=== PATIENT | female | born 1985 | race Caucasian/White ===

== ENCOUNTER 2018-01-18 10:47 | Emergency (ER) | payer MEDICAID, OTHER ==
[~2018-01-18] VITALS: Ht 160 cm; Wt 68.0 kg
[2018-01-18] MEDS ORDERED: ACETAMINOPHEN 500 MG TABLET PO ONE (11:00)
[2018-01-18] MEDS ORDERED: ACETAMINOPHEN 500 MG TABLET ONE (11:06)
[2018-01-18] MEDS ORDERED: PLEASE ENTER HEIGHT AND WEIGHT MC SCH (11:30)
[2018-01-18] MEDS ORDERED: PLEASE ENTER ALLERGIES MC SCH (11:30)
[2018-01-18] MEDS ORDERED: LIDOCAINE-MPF 2% ,5ML SQ ONE (12:30)
[2018-01-18] MEDS ORDERED: LIDOCAINE-MPF 2% ,5ML ONE (12:35)
[2018-01-18 12:56] VITALS: BP 134/95
== END 2018-01-18 13:17 | disposition home or self-care (01) ==
LOC: ED 11:16
DX: S01.511A Laceration without foreign body of lip, initial encounter (principal); S06.9X1A Unspecified intracranial injury with loss of consciousness of 30 minutes or less, initial encounter; Y04.0XXA Assault by unarmed brawl or fight, initial encounter; Y93.89 Activity, other specified; Y92.009 Unspecified place in unspecified non-institutional (private) residence as the place of occurrence of the external cause; Y99.8 Other external cause status
CPT/HCPCS: 12011; 70450; 72072; 99284

== ENCOUNTER → 2020-11-27 | Outpatient (CLI) | payer OTHER | END | disposition home or self-care (01) | LOC: RAD 10:15 | PROVIDERS: ATTEND Physician Assistant Medical | DX: R10.9 Unspecified abdominal pain (principal) | CPT/HCPCS: 76770 ==